=== PATIENT | male | born 1970 | race Caucasian/White ===

== ENCOUNTER 2017-07-26 17:29 | Emergency (ER) | payer SELFPAY ==
[~2017-07-26] VITALS: Ht 160 cm; Wt 77.1 kg
[2017-07-26 17:34] VITALS: Ht 160 cm; Wt 77.1 kg
[2017-07-26 19:28] VITALS: BP 132/92
== END 2017-07-26 19:28 | disposition left against medical advice (07) ==
LOC: ED 17:29
DX: Z53.21 Procedure and treatment not carried out due to patient leaving prior to being seen by health care provider (principal)

== ENCOUNTER 2018-05-02 18:34 | Emergency (ER) | payer SELFPAY ==
[~2018-05-02] VITALS: Ht 162.6 cm; Wt 79.8 kg
[2018-05-02 20:48] VITALS: BP 119/76
== END 2018-05-02 20:48 | disposition home or self-care (01) ==
LOC: ED 18:34
DX: R51 Headache (principal); I10 Essential (primary) hypertension; J45.909 Unspecified asthma, uncomplicated; Z79.899 Other long term (current) drug therapy
CPT/HCPCS: 82962; J0780; J1885

== ENCOUNTER 2019-02-26 12:40 | Emergency (ER) | payer SELFPAY ==
[~2019-02-26] VITALS: Ht 165.1 cm; Wt 78.9 kg
[2019-02-26 12:44] VITALS: Ht 165.1 cm; Wt 78.9 kg
[2019-02-26 17:49] VITALS: BP 128/97
== END 2019-02-26 17:49 | disposition home or self-care (01) ==
LOC: ED 12:40
DX: I10 Essential (primary) hypertension (principal); J45.909 Unspecified asthma, uncomplicated; E78.00 Pure hypercholesterolemia, unspecified; Z98.890 Other specified postprocedural states
CPT/HCPCS: J1885

== ENCOUNTER 2020-02-26 13:13 | Emergency (ER) | payer SELFPAY ==
[~2020-02-26] VITALS: Ht 160 cm; Wt 74.8 kg
[2020-02-26 14:12] VITALS: BP 135/96
== END 2020-02-26 18:15 | disposition left against medical advice (07) ==
LOC: ED 13:13
DX: Z53.21 Procedure and treatment not carried out due to patient leaving prior to being seen by health care provider (principal)